=== PATIENT | female | born 1965 | race Caucasian/White ===

== ENCOUNTER 2019-09-21 01:29 | Outpatient (CLI) | payer OTHER, SELFPAY ==
[2019-09-21 18:20] LABS: SARS-CoV-2 RNA PCR Negative
== END 2019-09-21 01:30 | disposition home or self-care (01) ==
LOC: ANHCOVIDDT 01:30
PROVIDERS: PCP Family Medicine; Visit Provider Internal Medicine Gastroenterology
DX: Z01.812 Encounter for preprocedural laboratory examination (principal); Z11.59 Encounter for screening for other viral diseases
CPT/HCPCS: 87635; C9803; U0003

== ENCOUNTER 2019-09-23 02:49 | Day surgery (SDC) | payer OTHER, SELFPAY ==
[2019-09-18 10:41] VITALS: BMI 25.7
[2019-09-23 06:27] VITALS: BP 117/93; PULSE 99; RESP 16; TEMP 37.2; O2SAT 100; BMI 26.7
[2019-09-23] MEDS: LACTATED RINGERS 1,000 ML 150 ML IV CONT (06:43)
--- NOTE | 2019-09-23 07:04 | WPDANESEPPF ---
Anes - Initial Pre Proc Eval Procedure: Operation Date: 09/23/19 07:30 Proposed Procedures p Colonoscopy - Martinez Braswell MD Date/Time: 09/23/19 07:04 Surgeon: Martinez Braswell MD Pre Op Diagnosis: Mucus In Stool Patient Data Age: 54 Gender: F Height: 5 ft 4 in Weight: 70.7 kg Last Vital Signs Temp 98.9 F 09/23/19 06:27 Pulse 99 09/23/19 06:27 Resp 16 09/23/19 06:27 BP 117/93 H 09/23/19 06:27 Pulse Ox 100 09/23/19 06:27 Allergies Allergy/AdvReac Type Severity Reaction Status Date / Time lisinopril AdvReac Mild Cough Verified 09/23/19 06:25 Home Medications Medication Instructions Recorded Confirmed Type hydrochlorothiazide 25 mg tablet 25 mg PO DAILY #30 tablet 09/09/19 09/18/19 Rx peg 3350-electrolytes 236 240 ml PO Q10M #4000 ml 09/21/19 Rx gram-22.74 gram-6.74 gram-5.86 gram solution Patient hx anesthesia problems: none Family hx anesthesia problems: none PMFSH Past Medical History Medical History (Updated 09/23/19 @ 07:01 by Vincent Hatfield MD) Hyperlipidemia Hypertension Mitral valve prolapse Social History Social History Smoking status: Never smoker Alcohol intake: current Gender identity (if verbalized by the patient): Female Anes - Eval Final PreProcedure Day of Procedure 09/23/19 07:04 Patient weight: normal Heart: regular rate and rhythm Lungs: clear to auscultation Airway: Mallampati scale class II Neurological: alert and oriented Last oral intake: >/= 8 hours ASA classification: II Emergent: no Anesthetic plan: proceed Anesthesia type and monitoring: general GIVS and standard monitoring Informed Consent: The patient's anesthetic plan and its attendant risks and benefits were discussed with the patient/family/POA. Questions were solicited and answers provided to the satisfaction of the patient/family/POA.
--- NOTE | 2019-09-23 07:30 | PM.HPGS ---
History of Present Illness History of Present Illness Consent: Risks, benefits, and alternatives have been discussed and questions answered. Patient agrees to proceed with procedure. Chief complaint: Mucus In Stool Narrative: Mirtha Weiner is a 54 year old female here for screening colonoscopy (sister with neuroendocrine tumor- primary colon, grandfather with colon cancer at early age), she had colonoscopy 2 years ago. Lately with llq pain. Review of Systems Constitutional: Constitutional: Denies headache(s) and Denies weakness Eyes: Eyes: Denies blurry vision ENT: Reports Normal hearing present, Denies headache(s) and Denies neck pain Cardiovascular: Cardiovascular: Denies chest pain and Denies dyspnea Respiratory: Respiratory: Denies dyspnea Gastrointestinal: Gastrointestinal: Reports no additional gastrointestinal complaints Genitourinary: Genitourinary: Denies dysuria Musculoskeletal: Musculoskeletal: Denies neck pain Integumentary/Breasts: Skin/Breast: Denies dry skin Neurologic: Reports Normal hearing present, Denies headache(s) and Denies weakness Psychiatric: Psychiatric: Denies anxiety Endocrine: Endocrine: Denies change in body appearance Hematologic/Lymphatic: Hematologic/Lymphatic: Denies easy bleeding Allergic/Immunologic: Allergic/Immunologic: Denies urticaria PMFSH Past Medical History Medical History (Updated 09/23/19 @ 07:32 by Martinez Braswell MD) Colon cancer screening Hyperlipidemia Hypertension Mitral valve prolapse Social History Social History Smoking status: Never smoker Alcohol intake: current Gender identity (if verbalized by the patient): Female Meds Home Medications and Allergies Home Medications Medication Instructions Recorded Confirmed Type hydrochlorothiazide 25 mg tablet 25 mg PO DAILY #30 tablet 09/09/19 09/18/19 Rx peg 3350-electrolytes 236 240 ml PO Q10M #4000 ml 09/21/19 Rx gram-22.74 gram-6.74 gram-5.86 gram solution Allergies Allergy/AdvReac Type Severity Reaction Status Date / Time lisinopril AdvReac Mild Cough Verified 09/23/19 06:25 Vital Signs Vital Signs - 24 hr 09/23/19 06:27 Temperature 98.9 F Pulse Rate 99 Respiratory Rate 16 Blood Pressure 117/93 H Pulse Oximetry 100 Exam Const: General: comfortable and no acute distress HENMT: General nose exam: Normal nares present Eyes: General: appearance normal, both eyes and all related structures Neck: Neck: no JVD Resp: Auscultation: clear to auscultation bilaterally Cardio: Rate: regular rate Rhythm: regular rhythm GI: Inspection: non-distended GI Palp: Yes Soft to palpation Skin: General skin exam: normal color Neuro: General: gait normal Speech: normal speech Extrem: General: normal to inspection Psych: Mental Status: mental status grossly normal Assessment and Plan Assessment and plan (1) Colon cancer screening: Code(s): Z12.11 - Encounter for screening for malignant neoplasm of colon Status: Acute Assessment and Plan: will proceed with colonoscopy (2) Mucus in stool: Code(s): R19.5 - Other fecal abnormalities Status: Acute
[2019-09-23 08:00] VITALS: BP 89/55; PULSE 61; RESP 16; O2SAT 99
[2019-09-23 08:11] VITALS: BP 100/58; PULSE 61; RESP 16; O2SAT 100
[2019-09-23 08:21] VITALS: BP 105/66; PULSE 62; RESP 16; O2SAT 100
== END 2019-09-23 08:33 | disposition home or self-care (01) ==
PROVIDERS: PCP Family Medicine; Visit Provider Internal Medicine Gastroenterology
PROC: 0DJD8ZZ Inspection of Lower Intestinal Tract, Via Natural or Artificial Opening Endoscopic (ICD-10-PCS; CPT 45378; principal; 2019-09-23 07:30)
DX: Z12.11 Encounter for screening for malignant neoplasm of colon (principal); R19.5 Other fecal abnormalities; K64.8 Other hemorrhoids; Z80.0 Family history of malignant neoplasm of digestive organs; I10 Essential (primary) hypertension; E78.5 Hyperlipidemia, unspecified; I34.1 Nonrheumatic mitral (valve) prolapse
CPT/HCPCS: 45378; J2704; J7120

== ENCOUNTER 2019-10-16 06:54 | Outpatient (CLI) | payer OTHER, SELFPAY ==
--- NOTE | 2019-10-16 07:00 | EST_ITS ---
Patient Info Name: Mirtha Weiner Age: 54 years : 1965 Gender: Female Ht: 63 in Wt: 150 lbs BSA: 1.76 m2 Exam Date: 10/16/2019 8:16 AM Exam Location: [facility] Stress Patient Status: Outpatient Admit Date: 10/16/2019 Staff Ordering Physician: Colette Devine Attending Provider: CHAVA HAMMOND DO Exercise Technologist: Yael Connor RDCS Exercise Physician: Chava Hammond DO Exam Type: CA stress test treadmill Study Info Indications R07.89 - Other chest pain A treadmill exercise stress test was performed. Summary 1. 1. Negative Eric exercise stress test for ischemic ST changes by ECG criteria. 2. 2. Reduced functional capacity, achieving 7 METs of workload. 3. 3. Appropriate HR response to exercise. 4. 4. Appropriate HR recovery at 1 minute post exercise. 5. 5. No imaging with stress testing. 6. 6. Patient informed of the above results. Protocol: Eric Stress ECG Details Stage: REST Duration (min): 4 min : 20 sec Speed (mph): 0.0 Grade (%): 0 HR (bpm): 62 SBP (mmHg): --- DBP (mmHg): --- METS: --- Stage: REST Duration (min): 4 min : 45 sec Speed (mph): 0.0 Grade (%): 0 HR (bpm): 58 SBP (mmHg): --- DBP (mmHg): --- METS: --- Stage: REST Duration (min): 6 min : 3 sec Speed (mph): 0.0 Grade (%): 0 HR (bpm): 61 SBP (mmHg): --- DBP (mmHg): --- METS: --- Stage: STAGE 1 Duration (min): 1 min : 0 sec Speed (mph): 1.7 Grade (%): 10 HR (bpm): 108 SBP (mmHg): --- DBP (mmHg): --- METS: --- Stage: STAGE 1 Duration (min): 2 min : 0 sec Speed (mph): 1.7 Grade (%): 10 HR (bpm): 122 SBP (mmHg): --- DBP (mmHg): --- METS: --- Stage: STAGE 1 Duration (min): 3 min : 0 sec Speed (mph): 1.7 Grade (%): 10 HR (bpm): 131 SBP (mmHg): 165 DBP (mmHg): 60 METS: --- Stage: STAGE 2 Duration (min): 1 min : 0 sec Speed (mph): 2.5 Grade (%): 12 HR (bpm): 141 SBP (mmHg): 165 DBP (mmHg): 60 METS: --- Stage: STAGE 2 Duration (min): 2 min : 0 sec Speed (mph): 2.5 Grade (%): 12 HR (bpm): 150 SBP (mmHg): 172 DBP (mmHg): 66 METS: --- Stage: STAGE 2 Duration (min): 2 min : 30 sec Speed (mph): 2.5 Grade (%): 12 HR (bpm): 151 SBP (mmHg): 172 DBP (mmHg): 66 METS: --- Stage: RECOVERY Duration (min): 0 min : 29 sec Speed (mph): 0.0 Grade (%): 0 HR (bpm): 144 SBP (mmHg): 172 DBP (mmHg): 66 METS: --- Stage: RECOVERY Duration (min): 1 min : 29 sec Speed (mph): 0.0 Grade (%): 0 HR (bpm): 110 SBP (mmHg): 150 DBP (mmHg): 68 METS: --- Stage: RECOVERY Duration (min): 2 min : 29 sec Speed (mph): 0.0 Grade (%): 0 HR (bpm): 91 SBP (mmHg): 150 DBP (mmHg): 68 METS: --- Stage: RECOVERY Duration (min): 3 min : 29 sec Speed (mph): 0.0
--- NOTE | 2019-10-16 07:00 | ECHO_ITS ---
Patient Info Name: Mirtha Weiner Age: 54 years : 1965 Gender: Female Ht: 63 in Wt: 150 lbs BSA: 1.76 m2 HR: 62 bpm BP: 134 / 93 mmHg Technical Quality: Good Exam Date: 10/16/2019 7:20 AM Exam Location: [facility] Patient Status: Outpatient Admit Date: 10/16/2019 Staff Ordering Physician: Colette Devine PAC Hack Driver: Demetrio Villegas RDCS, RT Attending Provider: Colette Devine PAC Referring Physician: Nilson FLORENCE; Exam Type: CA echo doppler color flow Study Info Indications R07.9 - Chest pain, unspecified Complete two-dimensional, color flow and Doppler transthoracic echocardiogram is performed. Summary 1. Complete two-dimensional, color flow and Doppler transthoracic echocardiogram is performed. 2. Left ventricular chamber dimension is normal. 3. Left ventricular systolic function is normal, estimated at 60-65%. 4. The left ventricular diastolic function is normal. 5. E/e' 5 is not elevated. 6. Global longitudinal strain is normal at -17.1%. 7. No pulmonary hypertension, estimated pulmonary arterial systolic pressure is 30 mmHg. Left Ventricle E/e' 5 is not elevated. Global longitudinal strain is normal at -17.1%. Left ventricular chamber dimension is normal. Left ventricular systolic function is normal, estimated at 60-65%. The left ventricular diastolic function is normal. Right Ventricle Right ventricular chamber dimension is normal. Right ventricular systolic function is normal. Left Atria Left atrial chamber dimension is normal. Right Atria Right atrial chamber dimension is normal. Aortic Valve The aortic valve is trileaflet. There is no aortic valve stenosis. There is no aortic valve regurgitation. Pulmonic Valve There is no pulmonic regurgitation. Mitral Valve There is no mitral valve stenosis. There is no mitral valve regurgitation. Tricuspid Valve There is no tricuspid valve regurgitation. No pulmonary hypertension, estimated pulmonary arterial systolic pressure is 30 mmHg. Pericardium/Pleural There is no pericardial effusion. Inferior Vena Cava Normal inferior vena cava with >50% collapse upon inspiration consistent with normal right atrial pressure, 5 mmHg. Aorta The aortic root size at the sinus of Valsalva is normal. Left Ventricular Outflow Tract Name Value Normal LVOT 2D LVOT Diameter 1.9 cm LVOT Doppler LVOT Peak Gradient 5 mmHg LVOT Mean Gradient 2 mmHg LVOT VTI 26 cm LVOT VTI/AV VTI Ratio 0.8 LVOT Stroke Volume 78 ml LVOT CO 4.8 l/min LVOT CI 2.7 l/min/m2 Mitral Valve Name Value Normal MV Doppler MV Decel [place] 330 cm/s2 M
== END 2019-10-16 06:55 | disposition home or self-care (01) ==
PROVIDERS: PCP Family Medicine; Visit Provider Physician Assistant Medical
DX: R07.89 Other chest pain (principal)
CPT/HCPCS: 93017; 93306

== ENCOUNTER → 2019-10-20 15:48 | Outpatient (CLI) | payer OTHER, SELFPAY ==
--- NOTE | ~2019-10-20 | XR_ITS ---
XR chest 2V DATE: 10/20/2019 16:24 INDICATION: Left upper posterior shadowing pain radiating to the left arm TECHNIQUE: PA and lateral views COMPARISON: 09/29/2018 2 view chest FINDINGS: Normal heart size. No hilar or mediastinal enlargement. No pulmonary infiltrate or consolid ation, pleural effusion or pulmonary vascular congestion or pneumothorax. IMPRESSION: No active cardiopulmonary disease Reviewed, dictated and finalized at location A.
== END ==
PROVIDERS: PCP Physician Assistant Medical; Visit Provider Physician Assistant Medical
DX: R06.2 Wheezing (principal)
CPT/HCPCS: 71046

== ENCOUNTER 2019-12-04 07:29 | Outpatient (CLI) | payer OTHER, SELFPAY ==
--- NOTE | 2019-12-05 08:50 | WPDPFTINT ---
PFT Interpretation PFT Interpretation: This PFT met all criteria for ATS standards and reproducibility Spirometry was of poor quality and could not be interpreted TLC 113% RV 117% RV/TLC 37% DLCO 73% when adjusted for alveolar volume but not adjusted for hemoglobin Flow volume loops were not interpretable due to poor patient technique Impression: The spirometry is difficult to interpret due to poor patient technique. No restriction is present. Mildly decreased diffusion capacity. Would recommend repeating full PFT. Clinical correlation is advised.
== END 2019-12-04 07:30 | disposition home or self-care (01) ==
PROVIDERS: PCP Family Medicine; Visit Provider Nurse Practitioner Family
DX: R06.2 Wheezing (principal); R07.89 Other chest pain
CPT/HCPCS: 94060; 94726; 94729

== ENCOUNTER 2019-12-14 08:00 | Outpatient (CLI) | payer OTHER, SELFPAY ==
--- NOTE | ~2019-12-14 | CT_ITS ---
EXAMINATION: CT chest high resolution wo tn DATE: 12/14/2019 08:30 INDICATION: Wheezing TECHNIQUE: Computed tomography (CT) of the chest was performed without intravenous contrast. The dose -length product (DLP) was 153.54 mGy-cm. Automated exposure control and iterative reconstruction tech nique were employed. COMPARISON: None FINDINGS: The lungs are free of acute opacities. There is no pleural effusion or pneumothorax. No pat hologically enlarged thoracic lymph nodes are identified. The heart size is normal. There is mild tho racic spondylosis. IMPRESSION: 1. No CT correlate for the patient's symptoms. Reviewed, dictated and finalized at location A. GER SURGERY
== END 2019-12-14 08:01 | disposition home or self-care (01) ==
LOC: ANHIMG 08:07
PROVIDERS: PCP Family Medicine; Visit Provider Physician Assistant Medical
DX: R06.02 Shortness of breath (principal)
CPT/HCPCS: 71250

== ENCOUNTER 2024-04-05 13:52 | Emergency (ER) | payer OTHER, SELFPAY ==
--- NOTE | ~2024-04-05 | XR_ITS ---
CHEST RADIOGRAPH, PA AND LATERAL CLINICAL HISTORY: acute cough . COMPARISON: 10/20/2019 TECHNIQUE: PA and lateral views of the chest. FINDINGS The cardiomediastinal silhouette is unremarkable. The lungs are clear. Visualized osseous structures and soft tissues are unremarkable. IMPRESSION: No focal infiltrate or effusion. Reviewed, dictated and finalized at location A. STOCKER
[2024-04-05 14:08] VITALS: BP 186/96; PULSE 74; RESP 16; TEMP 37.1; O2SAT 99
--- NOTE | 2024-04-05 14:29 | ED.URI ---
HPI - URI/Sore Throat General Chief Complaint: Upper Respiratory Infection Stated Complaint: COUGH/CONGESTION Time Seen by Provider: 04/05/24 14:20 Source: patient, RN notes reviewed and old records reviewed Mode of arrival: ambulatory Limitations: no limitations History of Present Illness HPI Narrative: 58 year old female presents to [facility] care accompanied by spouse with complaints of acute dry hacking cough starting on with chest congestion, some body aches and some low grade fevers and some burning in upper chest with cough.. Patient is [employer] and has been exposed to numerous ill children over the past 2 weeks. Patient reports that she has been taking Mucinex cold and flu for her symptoms. Patient reports no shortness of breath but cough is bothersome. MD elicited complaint: fever (low grade fevers), cough and other (congestion, body aches) Pertinent past history: pneumonia Onset (ago): day(s) (4) Pain scale (0-10): 5 Able to tolerate fluids by mouth: Yes Treatments prior to arrival: other (Mucinex cold and flu) Related Data Allergies Allergy/AdvReac Type Severity Reaction Status Date / Time lisinopril AdvReac Mild Cough Verified 04/05/24 14:08 Review of Systems Review of Systems: CONSTITUTIONAL:Reports malaise, chills, sweats, or fever. EYES: Denies visual changes, redness, or discharge. ENT: Reports rhinorrhea, congestion, no sinus pain, no otalgia and no sore throat. CARDIOVASCULAR: Denies chest pain, palpitations, or edema. RESPIRATORY: Reports cough.? Denies dyspnea.reports burning in chest with cough GASTROINTESTINAL: Denies abdominal pain, nausea, vomiting, diarrhea SKIN: Denies rash or itching. MUSCULOSKELETAL: Reports myalgia. NEUROLOGIC: Denies headache. All systems reviewed & are unremarkable except as noted in HPI and below PMFSH Past Medical History Medical History Pneumonia Colon cancer screening Mitral valve prolapse Hypertension Hyperlipidemia Surgical History Surgical History H/O tubal ligation History of tonsillectomy Family History Family History Mother Family history of epilepsy Father Family history of malignant neoplasm Social History Social History Smoking status: Never smoker Alcohol intake: current Gender identity (if verbalized by the patient): Female Comments At time of signature, agree with nursing past medical, surgical, social and family history. There is no relevant family history pertinent to the presenting complaint Exam Narrative: GENERAL: Well-appearing, well-nourished, and in no acute distress. HEAD: Normocephalic EYES: PERRLA, conjunctivae clear ENT: Nares clear, turbinates edematous and erythematous, clear discharge. Mucous membranes moist. TM pearly jacobsen with dull light reflex bilaterally; no tragal tenderness. Oropharynx erythematous without lesions. Tonsils not present and throat without exudate, no drooling, no hoarseness, no trismus, uvula midline.some post nasal drainage NECK: Supple. No lymphadenopathy CHEST: occasional wheeze noted on auscultation, breath sounds equal. +wheezing, no rhonchi, rales, or stridor. No respiratory distress, speaks in full sentences.dry hacking cough, SAO2 99% on room air HEART: Regular rate and rhythm. No murmur heard. SKIN: Warm, dry, no rash. NEURO: Alert and oriented x3. PSYCH: Normal mood and affect Course Course Emergency Course: Patient is aware of diagnosis, understands and agrees to treatment plan.? Anticipatory guidance given.? Patient agrees to follow-up as directed and is aware of reasons to seek care at the emergency department. Portions of this record may have been created with voice recognition software Level of Care: Express Care Visit Vital Signs Vital signs: Vital Signs Temperature 37.1 C 04/05/24 14:08 Pulse Rate 74 04/05/24 14:08 Respiratory Rate 16 04/05/24 14:08 Blood Pressure 186/96 H 04/05/24 14:08 Pulse Oximetry 99 04/05/24 14:08 Temperature 37.1 C 04/05/24 14:08 Pulse Rate 74 04/05/24 14:08 Respiratory Rate 16 04/05/24 14:08 Blood Pressure 186/96 H 04/05/24 14:08 Pulse Oximetry 99 04/05/24 14:08 Reviewed MDM - URI/Sore Throat MDM Narrative Medical decision making narrative: Differential diagnosis considered: Salgado virus, strep pharyngitis, allergic rhinitis, upper respiratory tract infection, sinusitis, rhinosinusitis, nasopharyngitis. viral pharyngitis, otitis media, otitis externa, pneumonia, bronchitis, viral cough syndrome, viral syndrome, and influenza.? Exam findings show no acute concerns or changes; patient is non-toxic appearing and is in no distress.? Patient is appropriate for outpatient treatment and follow-up. Differential Diagnosis Differential diagnosis: Likely upper respiratory infection, sinusitis, viral infection, bronchitis, influenza and other (COVID, acute cough) Medical Records Attestation: I reviewed the patient's medical records. Lab Data Attestation: I reviewed the patient's lab results. Lab results narrative: Influenza A negative, Influenza B negative, COVID antigen negative Labs: Lab Results 04/05/24 Range/Units 14:37 POC Influenza A Ag Negative (Negative) POC Influenza B Ag Negative (Negative) POC SARS CoV-2 Ag Negative (Negative) reviewed Imaging Data My impression: no focal infiltrate or effusion Radiologist's impression: [address] [address] XRay Report Signed Patient: Mirtha Weiner : 1965 MR#: [id number] Age: 58 Acct:[id number] Loc: [facility] ADM Date: 04/05/24Attending Dr: Ordering Physician: Paz Tian APRN Date of Service: 04/05/24 Procedure(s): XR chest 2V Accession Number(s): [id number] cc: Chris Chavira MD; Paz Tian APRN~ CHEST RADIOGRAPH, PA AND LATERAL CLINICAL HISTORY: acute cough . COMPARISON: 10/20/2019 TECHNIQUE: PA and lateral views of the chest. FINDINGS The cardiomediastinal silhouette is unremarkable. The lungs are clear. Visualized osseous structures and soft tissues are unremarkable. IMPRESSION: No focal infiltrate or effusion. Reviewed, dictated and finalized at location A. E CUTTING MACHINE OPERATOR HELPER Please be advised this is a medical document. It is intended for [id number] communication. It is written in medical language and may contain unfamiliar abbreviations or verbiage. Medical documents are intended to carry relevant information, facts as evident, and the clinical opinion of the practitioner at the time of the encounter. This report may have been done utilizing a voice recognition system. Attempts have been made to correct errors. However, there may be uncorrected grammatical, spelling, and recognition errors present. The file time of this note does not necessarily represent the time of service. Dictated By: Mirtha Pedroza MD 04/05/24 1437 Signed By: <Electronically signed by Mirtha Pedroza MD in OV> Critical Care Time Critical Care Time Critical Care Time: No Discharge Plan Discharge Clinical Impression: Acute bronchitis Qualifiers: Bronchitis organism: unspecified organism Qualified Code(s): J20.9 - Acute bronchitis, unspecified Patient Disposition: Home, Self-Care Condition: Stable Instructions: Antibiotic Form, Acute Bronchitis (ED) Additional Instructions: Increase fluids especially juices and water [id number] cough and cold medicine of your choice for your symptoms Tylenol or Ibuprofen for any fever or pain Cough tablets as directed for cough--do not bite, chew or suck on--swallow whole Continue your inhaler/nebulizer as directed Steroids as directed--take with food heat to the face 20-30 minutes 4-6 times a day for pain Salt water gargles, throat lozenges or throat sprays as desired If your symptoms persist, change or worsen significantly before you can contact your personal physician then please, without delay, go to the emergency department for further evaluation. Follow-up with PCP in 7-10 days or sooner if needed Follow up with PCP soon in regards to your blood pressure which is elevated above threshold for referral. Blood pressure above 120/80 may indicate pre-hypertension. 186/96 Patient Language: Irish Prescriptions: New prednisone 10 mg tablet 10 mg PO DIRECTED Qty: 21 0RF Rx Instructions: see taper instructions 6 tabs day 1, 5 tabs day 2, 4 tabs day 3, 3 tab day 4, 2 tabs day 5, 1 tab day 6 albuterol sulfate [Ventolin HFA] 90 mcg/actuation HFA aerosol inhaler 2 puff inhalation QID PRN (Reason: shortness of breath or wheezing) Qty: 6.7 0RF Rx Instructions: use routinely for the next 2 days then as needed hydrochlorothiazide 25 mg tablet 25 mg PO DAILY Qty: 14 0RF No Action hydrochlorothiazide 25 mg tablet 25 mg PO DAILY Qty: 30 4RF Follow-up/Referrals: Chris Chavira MD [Primary Care Provider] - Time of Disposition: 15:07 Quality Jonna Coma Scale Eyes: Open Verbal: Oriented and Alert Motor: Follows Commands Jonna Coma Total Score: 15
[2024-04-05 14:39] LABS: EDCOVIDSCREEN Negative (Negative); EDINFLUASCREEN Negative (Negative); EDINFLUBSCREEN Negative (Negative)
== END 2024-04-05 15:12 | disposition home or self-care (01) ==
PROVIDERS: Emergency Provider Registered Nurse; PCP Family Medicine
DX: J20.9 Acute bronchitis, unspecified (principal); Z20.822 Contact with and (suspected) exposure to COVID-19; I10 Essential (primary) hypertension; E78.5 Hyperlipidemia, unspecified; I34.1 Nonrheumatic mitral (valve) prolapse
CPT/HCPCS: 71046; 87426; 87804; 99213; G0463

== ENCOUNTER 2024-07-09 11:34 | Outpatient (CLI) | payer OTHER, SELFPAY ==
--- NOTE | ~2024-07-09 | XR_ITS ---
XR cervical spine min 6V Ordering provider: José Miguel Evans, DC History: . Neck pain . Comparison: None. FINDINGS: VERTEBRAL BODIES: Normal height and alignment. No visible fracture or subluxation. The dens is intact . Degenerative changes of the spine. DISK SPACES: Narrowing of the disc C5-C6.. Narrowing of the left lower intervertebral foramina. PARASPINOUS SOFT TISSUES: No prevertebral soft tissue swelling. IMPRESSION: No acute osseous abnormality cervical spine. Degenerative disc disease at the level of C5-C6 Reviewed, dictated and finalized at location A.
== END 2024-07-09 11:35 | disposition home or self-care (01) ==
LOC: MICIMG 11:36
PROVIDERS: PCP Family Medicine; Visit Provider Chiropractor
DX: M50.322 Other cervical disc degeneration at C5-C6 level (principal)
CPT/HCPCS: 72052

== ENCOUNTER 2024-12-07 16:34 | Outpatient (CLI) | payer OTHER, SELFPAY ==
--- NOTE | ~2024-12-07 | XR_ITS ---
EXAMINATION: XR elbow RT min 3V, 12/07/2024 16:37 CDT HISTORY: M25.521 - Pain in right elbow COMPARISON: No comparisons available. Findings: No acute fracture or malalignment. No significant degenerative changes. Soft tissues unremarkable. Impression: No acute fracture or malalignment. Reviewed, dictated and finalized at location P. Impression: No acute fracture or malalignment.
== END 2024-12-07 16:35 | disposition home or self-care (01) ==
LOC: MICIMG 16:35
PROVIDERS: PCP Family Medicine; Visit Provider Family Medicine
DX: M25.521 Pain in right elbow (principal)
CPT/HCPCS: 73080